=== PATIENT | female | born 1960 | race Caucasian/White ===

== ENCOUNTER 2021-10-15 12:18 | Emergency (ER) | payer SELFPAY ==
[~2021-10-15] VITALS: Ht 157.5 cm; Wt 122.5 kg
--- NOTE | 2021-10-15 12:20 | NUR ---
Pt brought by self, A&Ox4, pt presents to ER with L knee pain x 1 month, denies trauma, skin pink and warm, cap refill <3, VSS, respirations even and unlabored, will cont to monitor.
[2021-10-15 12:24] VITALS: BP_SYST 136
--- NOTE | 2021-10-15 22:24 | NUR ---
Dr Alegria evaluating patient in the triage room
--- NOTE | 2021-10-15 22:24 | NUR ---
Jessica rizzo in [facility] - 10/15/21 at [email or web address] Fontanez evaluating patient at bedside
[2021-10-15] MEDS ORDERED: IBUP-1970 PO (22:52)
[2021-10-15] MEDS ORDERED: HYDR-3917 PO ×2 (22:53→22:57)
--- NOTE | 2021-10-16 | NUR ---
Pt eloped facility with upset yelling this is taking to long. Pt was not given discharge paperwork with prescription.
[2021-10-16 02:09] VITALS: BP_SYST 136
== END 2021-10-16 00:40 | disposition home or self-care (01) ==
LOC: SED 12:18
DX: M25.562 Pain in left knee (principal); I10 Essential (primary) hypertension; Z79.899 Other long term (current) drug therapy
CPT/HCPCS: 73564; 99283